=== PATIENT | female | born 1980 | race African-American/Black ===

== ENCOUNTER 2019-01-02 17:49 | Emergency (ER) | payer MEDICAID ==
[~2019-01-02] VITALS: Ht 167.6 cm; Wt 100.0 kg
[2019-01-02 17:51] VITALS: BP 140/84
== END 2019-01-02 19:55 | disposition left against medical advice (07) ==
LOC: ER 17:49
DX: Z53.21 Procedure and treatment not carried out due to patient leaving prior to being seen by health care provider (principal)